=== PATIENT | male | born 1995 | race Caucasian/White ===

== ENCOUNTER 2017-05-30 17:05 | Emergency (ER) | payer OTHER ==
[~2017-05-30] VITALS: Ht 180.3 cm; Wt 93.3 kg
[~2017-05-30 17:05] MED LIST: BENTYL10 MG PO
[2017-05-30] MEDS ORDERED: MOTRIN600 MG PO (18:10)
[2017-05-30 18:36] VITALS: BP 155/93
== END 2017-05-30 18:36 | disposition home or self-care (01) ==
LOC: EME 17:05
DX: S90.32XA Contusion of left foot, initial encounter (principal); W20.8XXA Other cause of strike by thrown, projected or falling object, initial encounter; Y92.59 Other trade areas as the place of occurrence of the external cause; Y99.0 Civilian activity done for income or pay; F17.200 Nicotine dependence, unspecified, uncomplicated
CPT/HCPCS: 73630; 99281; 99284

== ENCOUNTER 2017-08-08 17:51 | Emergency (ER) | payer OTHER ==
[~2017-08-08] VITALS: Ht 180.3 cm; Wt 91.5 kg
[~2017-08-08 17:51] MED LIST changes: +MOTRIN600 MG PO
[2017-08-08] MEDS ORDERED: LIDODERM 5% P1 PATCH TD (18:40)
[2017-08-08] MEDS ORDERED: PREDNISONE20 MG PO (18:40)
[2017-08-08] MEDS ORDERED: FLEXERIL10 MG PO (18:40)
[2017-08-08] MEDS ORDERED: MOTRIN800 MG PO (18:40)
[2017-08-08 19:36] VITALS: BP 142/89
== END 2017-08-08 20:36 | disposition left against medical advice (07) ==
LOC: EME 17:51
DX: M62.838 Other muscle spasm (principal); M25.512 Pain in left shoulder; S46.812A Strain of other muscles, fascia and tendons at shoulder and upper arm level, left arm, initial encounter; M54.2 Cervicalgia; X58.XXXA Exposure to other specified factors, initial encounter; F17.200 Nicotine dependence, unspecified, uncomplicated
CPT/HCPCS: 73010; 99281; 99284; J7512

== ENCOUNTER 2018-01-11 04:12 | Emergency (ER) | payer OTHER ==
[~2018-01-11] VITALS: Ht 180.3 cm; Wt 90.3 kg
[~2018-01-11 04:12] MED LIST changes: +FLEXERIL10 MG PO; +LIDODERM 5% P1 PATCH TD; +MOTRIN800 MG PO; +PREDNISONE20 MG PO
[2018-01-11] MEDS ORDERED: BACTRIM,SEPT1 TABLET PO (05:02)
[2018-01-11 06:02] VITALS: BP 131/83
== END 2018-01-11 06:03 | disposition home or self-care (01) ==
LOC: EME 04:12
PROC: 0H9MXZZ Drainage of Right Foot Skin, External Approach (ICD-10-PCS; principal; 2018-01-11)
DX: L03.031 Cellulitis of right toe (principal); R11.0 Nausea; F17.200 Nicotine dependence, unspecified, uncomplicated
CPT/HCPCS: 99281; 99284

== ENCOUNTER 2018-04-03 04:54 | Emergency (ER) | payer OTHER ==
[~2018-04-03] VITALS: Ht 177.8 cm; Wt 87.6 kg
[~2018-04-03 04:54] MED LIST changes: +BACTRIM,SEPT1 TABLET PO
[2018-04-03 05:53] LABS: SOURCE URINE
[2018-04-03 05:58] LABS: APPEARANCE CLEAR ((CLEAR)); BILIRUBIN NEGATIVE; BLOOD NEGATIVE; COLOR YELLOW ((YELLOW)); GLUCOSE (STRIP) NEGATIVE; KETONES NEGATIVE; LEUKOCYTES NEGATIVE; NITRITE NEGATIVE; PROTEIN (STRIP) 30; SPECIFIC GRAVITY 1.031 (1.000-1.030); UCUL ADDED? NO; UROBILINOGEN 0.2 MG/DL (0.2-1.0)
[2018-04-03 06:47] VITALS: BP 124/63
[2018-04-05 14:00] LABS: CHLAMYDIA TRACHOMATIS NEGATIVE; NEISSERIA GONORRHOEAE NEGATIVE
== END 2018-04-03 06:45 | disposition home or self-care (01) ==
LOC: EME 04:54
PROVIDERS: Emergency Medicine
DX: N50.811 Right testicular pain (principal); A64 Unspecified sexually transmitted disease; F17.200 Nicotine dependence, unspecified, uncomplicated
CPT/HCPCS: 76870; 81003; 87491; 87591; 99281; 99284; J0696